=== PATIENT | female | born 1975 | race Caucasian/White ===

== ENCOUNTER 2020-08-06 09:14 | Emergency (ER) | payer BC, OTHER ==
[2020-08-06] MEDS ORDERED: MAGNESIUM CITR296 ML PO (11:22)
[2020-08-06] MEDS ORDERED: FLEET ENEMA 13133 ML PR (11:22)
== END 2020-08-06 11:34 | disposition home or self-care (01) ==
LOC: ER1 09:14
DX: K59.00 Constipation, unspecified (principal); I10 Essential (primary) hypertension; E03.9 Hypothyroidism, unspecified
CPT/HCPCS: 74019; 99283